=== PATIENT | male | born 1980 | race Caucasian/White ===

== ENCOUNTER 2016-09-24 13:18 | Emergency (ER) | payer OTHER ==
[~2016-09-24] VITALS: Ht 182.9 cm; Wt 96.3 kg
[2016-09-24 13:21] VITALS: TEMP 37.1; Ht 182.9 cm; Wt 96.3 kg
--- NOTE | 2016-09-24 14:25 | DIAGNOSTIC IMAGING REPORT ---
TWO VIEW CHEST CLINICAL HISTORY: Cough and chest congestion. FINDINGS: PA and lateral chest radiographs are obtained. No prior studies are available for comparison at the time of dictation. The cardiomediastinal silhouette is unremarkable. The lungs and pleural spaces are clear. There is no pneumothorax. The bony thorax appears intact. IMPRESSION: No active disease in the chest. Electronically signed by: Sergio Quevedo M.D. 09/24/2016 2:23 PM Dictated Date/Time: 09/24/2016 2:23 PM
[2016-09-24] MEDS ORDERED: ALBUTEROL HFA 8 GM INHALER INH ONE (14:45)
[2016-09-24] MEDS ORDERED: AZITTAB PO (14:48)
--- NOTE | 2016-09-24 14:48 | EMERGENCY ROOM VISIT NOTE ---
ED Visit Note First contact with patient: 13:50 CHIEF COMPLAINT: Cough 1 week HISTORY OF PRESENT ILLNESS: Patient is an otherwise healthy 36-year-old white male who presents emergency department for evaluation of a cough 1 week. He states that he developed an acute febrile illness with cough, fever and upper respiratory symptoms last week. The fever resolved after a couple of days, but he is still left with cough and congestion. He reports that he is occasionally bringing up mucus that is clear, sometimes it is greenish yellow, and at one point he states that he coughed up "crimson" sputum. He reports using over-the- counter medications for his symptoms. He denies any chest pain, palpitations or shortness of breath, and in general reports that he is feeling better. He is more just concerned with the lingering cough. He does continue to note some sinus and nasal congestion and postnasal drip. He did not receive a flu vaccine this year. He denies any sick contacts. REVIEW OF SYSTEMS: Review of systems as per HPI. All other systems reviewed were negative. 10 systems reviewed. PMH: Electronic medical records are reviewed and summarized as above/below. See Problem List. SOCIAL HISTORY: Patient lives at home. Employed. Does not smoke. PHYSICAL EXAM: Vital Signs: Reviewed Nurse's notes. MENTAL STATUS: Patient is a well-appearing 36-year-old white male who is awake and alert and in no acute distress. He is afebrile. Vital signs are stable. He is oxygenating well on room air. No conversational dyspnea. HEAD: Atraumatic, without temporal or scalp tenderness. EYES: PERRL, EOMI, no discharge or injection. EARS: Tympanic membranes intact, not inflamed, have normal contour. External canals clear. NOSE: Nares patent, turbinates edematous and boggy with clear rhinorrhea. MOUTH: Mucous membranes moist, no lesions, tongue and gums appear normal. THROAT: No pharyngeal injection, exudates, or tonsillar hypertrophy. Airway is patent. NECK: Supple, nontender, no lymphadenopathy. HEART: Regular rate and rhythm without murmurs, ectopy, gallops, or rubs. LUNGS: Clear to auscultation and breath sounds equal, no wheezes, rales, or rhonchi. SKIN: Normal. NEUROLOGICAL: Sensory and motor functions grossly intact. Normal gait. EMERGENCY DEPARTMENT COURSE: Chest x-ray was obtained and was unremarkable. Patient was issued an albuterol inhaler with a spacer. I discussed with him that I suspect his illness is still likely viral at this point, however I did provide him a prescription for a Z-Deer if his cough and sinus symptoms persist. He can start this if he does not feel like he is getting any better after another 5-7 days. He was encouraged to continue the [id number] medication. Differential diagnosis includes viral illness including influenza, sinusitis, bronchitis, pneumonia, among others. TWO VIEW CHEST CLINICAL HISTORY: Cough and chest congestion. FINDINGS: PA and lateral chest radiographs are obtained. No prior studies are available for comparison at the time of dictation. The cardiomediastinal silhouette is unremarkable. The lungs and pleural spaces are clear. There is no pneumothorax. The bony thorax appears intact. IMPRESSION: No active disease in the chest. Current/Historical Medications Scheduled Azithromycin (Zithromax Z-Eder), 0 PO UD Allergies Coded Allergies: No Known Allergies (Unverified Allergy, NONE, 03/01/09) Vital Signs Date Time Temp Pulse Resp B/P Pulse Ox O2 Delivery O2 Flow Rate FiO2 09/24/16 15:01 74 20 146/87 99 09/24/16 13:21 37.1 67 18 106/80 99 Room Air Medications Administered Medications (Trade) Dose Ordered Sig/José Manuel Route Start Time Stop Time Status Last Admin Dose Admin Albuterol (Ventolin Hfa Inhaler) 2 puffs NOW ONCE INH 09/24/16 14:45 09/24/16 14:46 DC 09/24/16 14:57 2 PUFFS Departure Information Impression Primary Impression: Upper respiratory infection Prescriptions Azithromycin (ZITHROMAX Z-EDER) 250 Mg Tab 0 PO UD, #1 PKT 2 TABS DAY 1, THEN 1 TAB DAILY FOR 4 DAYS Prov: Windy Spear PA 09/24/16 Referrals No Doctor, Assigned (PCP) Patient Instructions My [facility] Additional Instructions Acetaminophen(Tylenol) may be used for fever or pain. Use 1000mg every six hours as needed. Avoid using more than 3000mg in a 24 hour period. (AND/OR) Ibuprofen(Motrin, Advil) may be used for fever or pain. Use 600mg every six hours as needed. Take with food. Avoid using more than 2400mg in a 24 hour period. Do not use 2400mg per day for more than three consecutive days without physician direction. Prolonged inappropriate use can lead to stomach upset or ulcers. Pseudoephedrine(Sudaphed): 30-60mg every 6 hours as needed for nasal congestion. Do not take this with other stimulant products or supplements. Guaifenesin (Mucinex) : Take 1200 mg every 12 hours as needed for nasal/chest congestion, to help thin secretions. Albuterol Inhaler: Take 2 puffs four times daily for seven days, then as needed. Rest and drink plenty of fluids. Wash your hands after nose blowing, sneezing, or coughing. Most germs are spread through contact, therefore improper hygiene may result in your close contacts and loved ones becoming ill just like you. Continue current medications. Return to the ER for severe headache, neck stiffness, chest pain, difficulty breathing, fevers, vomiting, worsening of your condition, or as needed. Follow up with your primary physician this week for a recheck of your current condition.
[2016-09-24 15:01] VITALS: BP 146/87; PULSE 74; O2SAT 99
== END 2016-09-24 15:02 | disposition home or self-care (01) ==
LOC: C.EDB 13:19 → C.EDD 15:02
DX: J06.9 Acute upper respiratory infection, unspecified (principal)